=== PATIENT | male | born 1985 | race African-American/Black ===

== ENCOUNTER 2020-01-29 11:02 | Emergency (ER) | payer SELFPAY ==
[~2020-01-29] VITALS: Ht 175.3 cm; Wt 63.6 kg
[2020-01-29 11:10] VITALS: TEMP 98.3
[2020-01-29 13:11] LABS: COLLECTION METHOD CLEAN CATCH
[2020-01-29 13:18] LABS: MUCOUS Present /lpf; PH 6 (5-8); SQUAMOUS EPITHELIAL None Seen /hpf; URINE APPEARANCE Clear; URINE BACTERIA Rare /hpf; URINE BILIRUBIN Negative (NEGATIVE); URINE BLOOD Negative (NEGATIVE); URINE COLOR Straw; URINE GLUCOSE Negative (NEGATIVE); URINE KETONE Negative (NEGATIVE); URINE LEUKOCYTE ESTERASE Negative (NEGATIVE); URINE NITRATE Negative (NEGATIVE); URINE PROTEIN(semi-quant) 2+ (NEGATIVE); URINE UROBILINOGEN Negative (NEGATIVE)
[2020-01-29 13:32] VITALS: BP 148/105; PULSE 72
== END 2020-01-29 13:32 | disposition home or self-care (01) ==
LOC: COL.ER 11:02
PROVIDERS: Family Medicine
DX: S00.93XA Contusion of unspecified part of head, initial encounter (principal); S70.01XA Contusion of right hip, initial encounter; R40.2410 Glasgow coma scale score 13-15, unspecified time; Y04.2XXA Assault by strike against or bumped into by another person, initial encounter; W19.XXXA Unspecified fall, initial encounter
CPT/HCPCS: J2405; J3010